=== PATIENT | female | born 1955 | race Caucasian/White ===

== ENCOUNTER 2019-11-18 18:18 | Inpatient (IN) | payer MEDICARE, MEDICAID ==
[2019-11-18 18:26] VITALS: BMI 25.4
[2019-11-18] MEDS ORDERED: Albuterol 200 PUFF (6.7GM INHALER) INH PRN (20:06)
[2019-11-18] MEDS ORDERED: Melatonin 3 MG TAB PO PRN (20:09)
[2019-11-18] MEDS ORDERED: BELSOMRA PO PRN (20:17)
[2019-11-18] MEDS: Montelukast Sodium 10 mg Tablet PO SCH (20:48)
[2019-11-18] MEDS: Atorvastatin Calcium 40 MG TAB PO SCH (20:48)
[2019-11-18] MEDS: Acetaminophen 325 MG TAB PO SCH (23:54)
[2019-11-19] MEDS: Acetaminophen 325 MG TAB PO SCH ×4 (05:33→23:00)
[2019-11-19 05:59] LABS: ALT (SGPT) 27 U/L (8-55); AST (SGOT) 15 U/L (5-34); Albumin 2.8 g/dL (3.4-4.8); Alkaline Phosphatase 105 U/L (40-110); Anion Gap 14 mmol/L (10-20); BUN (Urea Nitrogen) 20 mg/dL (9.8-20.1); Bilirubin, Total 0.2 mg/dL (0.2-1.2); Calc. Creatinine Clearance 87 mL/min (70-130); Carbon Dioxide 23 mmol/L (23-31); Chloride 110 mmol/L (98-107); Estimated GFR-MDRD 83; Globulin 2.3 g/dL (2.4-3.5); Glucose 89 mg/dL (80-115); Potassium 3.4 mmol/L (3.5-5.1); Protein, Total 5.1 g/dL (6.0-8.3); Sodium 144 mmol/L (136-145)
[2019-11-19 06:02] LABS: #Basophils 0.1 thou/uL (0.0-0.2); #Eosinphils 0.1 thou/uL (0.0-0.7); #Lymphocytes 2.1 thou/uL (1.20-3.40); #Monocytes 0.6 thou/uL (0.11-0.59); #Neutrophils 6.1 thou/uL (1.40-6.50); %Basophils 1.1 % (0.0-1.0); %Eosinophils 1.3 % (0.0-10.0); %Monocytes 6.3 % (0.0-10.0); %Neutrophils 68.3 % (42.0-75.0); Anisocytosis SLIGHT = 6-15 cells (100X) (0-5/hpf); Hemoglobin 8.8 g/dL (12.0-16.0); MDiff Complete? YES; Mean Corpuscular HGB CONC 30.1 g/dL (32.0-36.0); Mean Corpuscular Hemoglobin 28.2 pg (27.0-31.0); Mean Corpuscular Volume 93.6 fL (78.0-98.0); Mean Platelet Volume 7.5 fL (7.4-10.4); Microcytosis SLIGHT = 6-15 cells (100X) (0-5/hpf); Platelet Count 307 thou/uL (130-400); Platelet Morphology Comment Appears Adequate; RBC Distribution Width 19.9 % (11.5-14.5); Red Blood Cell (RBC) Count 3.11 mill/uL (4.20-5.40); White Blood Cell (WBC) Count 8.9 thou/uL (4.8-10.8)
[2019-11-19] MEDS: Ferrous Sulfate 325 MG TAB PO SCH ×2 (08:36→17:24)
[2019-11-19] MEDS: predniSONE 20 MG TAB PO SCH (08:36)
[2019-11-19] MEDS: Amiodarone 200 MG TAB PO SCH (08:37)
[2019-11-19] MEDS: Aspirin Chewable 81 MG TAB PO SCH (08:38)
[2019-11-19] MEDS: Furosemide 20 MG TAB PO SCH ×2 (08:38→14:47)
[2019-11-19] MEDS: Folic Acid 1 MG TAB PO SCH (08:38)
[2019-11-19] MEDS ORDERED: Potassium Chloride 20 MEQ TAB PO SCH (13:30)
--- NOTE | 2019-11-19 15:13 | HP ---
PRINCIPAL DIAGNOSIS: Deconditioning for therapy. BRIEF HISTORY: This is a pleasant 64-year-old female, who was admitted to the hospital with symptomatic bradycardia. She was felt to be overmedicated with amiodarone and beta-anh. Her amiodarone dose was reduced to 100 mg daily and her metoprolol was discontinued. Her heart rate remained stable and she was deemed stable for transfer to us for continued therapy before she goes home. She has been on a prednisone taper for her rheumatoid arthritis. She is currently taking 20 mg for two weeks, which started on November 10, then it will be 10 mg for two weeks, then 5 mg daily. She is also on Xarelto for history of atrial fibrillation and flutter. She recently underwent right ventricular wall rupture with a pericardial window placement. Currently, she is up in her chair and denies any chest pain or shortness of breath. She denies any fever or chills. She is hoping to get strong with therapy and go home. No family at bedside. PAST MEDICAL HISTORY: 1. Hypertension. 2. Dyslipidemia. 3. Atrial fibrillation. 4. Insomnia. 5. Rheumatoid arthritis. 6. History of DVT to left leg. 7. Asthma. 8. Retinal detachment. 9. Gastroesophageal reflux disease. PAST SURGICAL HISTORY: 1. Right ventricular wall rupture, status post repair and pericardial window placement. 2. Left knee replacement. 3. Multiple eye surgeries. FAMILY HISTORY: Positive for heart disease in her father, and there is an aunt on her father's side who had breast cancer. PSYCHOSOCIAL HISTORY: Quit smoking 10 years ago, she smoked only for a short period of time. Social alcohol intake. Denies any IV drug abuse or any other recreational drug abuse. REVIEW OF SYSTEMS: CARDIOVASCULAR: Denies any chest pain, shortness of breath, palpitations, PND, orthopnea, or pedal edema. RESPIRATORY: Occasional cough. Denies any expectoration. Denies any hemoptysis. Denies any pleuritic-type chest pain. GASTROINTESTINAL: Denies any nausea, vomiting, diarrhea, constipation, hematemesis, melena, or hematochezia. GENITOURINARY: Denies any frequency, urgency, dysuria, or hematuria. CENTRAL NERVOUS SYSTEM: Denies any focal numbness, weakness, or fainting spells. HEENT: Denies any difficulty with speech, vision, hearing, or swallowing. SKIN: Denies any rash. GENERAL: Denies any fever, chills, or weight changes. Occasional insomnia problem. MEDICATIONS: She has been transferred here on the following medications; 1. Tylenol 650 q.6 scheduled. 2. Proventil HFA two puffs q.4 p.r.n. 3. Amiodarone 100 mg daily. 4. Aspirin 81 mg daily. 5. Lipitor 40 mg daily. 6. Vitamin D3, 1000 international units daily. 7. Iron sulfate 325 b.i.d. 8. Folic acid 1 mg daily. 9. Lasix 20 mg b.i.d. 10. Melatonin 3 mg at bedtime as needed. 11. Singulair 10 mg at bedtime. 12. Protonix 40 mg daily. 13. Belsomra, but she is not taking it, so we will discontinue it. 14. Prednisone 20 mg tapering dose. 15. Xarelto 20 mg daily. ALLERGIES: IODINATED CONTRAST MEDIA AND IBUPROFEN. PHYSICAL EXAMINATION: GENERAL: Pleasant 64-year-old female, who is up in her chair, and denies any complaints. She responds appropriately to questions. She is alert, awake, and oriented x3. VITAL SIGNS: She is afebrile. Heart rate is 65, respirations 18, oxygen saturation 97% on room air, blood pressure 140/69. HEENT: Normocephalic and atraumatic. Pupils equally reactive to light and accommodation. NECK: No JVD, thyromegaly, cervical lymphadenopathy, or throat exudates. No carotid bruits. CARDIOVASCULAR SYSTEM: S1 and S2 plus. Rate and rhythm regular. RESPIRATORY: Normal vesicular breath sounds heard in all lung rivera. ABDOMEN: Soft, nontender. Bowel sounds heard in all quadrants. EXTREMITIES: Without cyanosis or clubbing. Trace edema. CENTRAL NERVOUS SYSTEM: AAO x3. Cranial nerves 2 through 12 intact. Grossly nonfocal. LABORATORY DATA: Laboratory values done this morning shows a white count of 8.9, hemoglobin and hematocrit are 8.8 and 29.2. Sodium 144, potassium slightly low at 3.4, BUN and creatinine is 20 and 0.71. IMPRESSION: 1. Chronic diastolic congestive heart failure. 2. Atrial fibrillation and flutter, rate controlled. 3. Gastroesophageal reflux disease. 4. Hypertension. 5. Dyslipidemia. 6. Rheumatoid arthritis. 7. History of deep venous thrombosis. 8. Insomnia. 9. Osteoarthritis. 10. Resolved sinus bradycardia. 11. Pericardial effusion, status post window placement and deconditioning and hypokalemia. PLAN: 1. Continue current medications, but discontinue Belsomra. 2. Replace potassium. 3. Heart healthy diet. 4. Monitor blood pressure and adjust medications as needed. 5. Monitor for continued resolution of heart failure. 6. DVT prophylaxis - she is on Xarelto. 7. Decubitus precautions. 8. Stress ulcer prophylaxis - she is on Protonix. 9. PT/OT eval and treat. 10. Routine laboratory values. 11. Discussed with the patient in detail. All questions answered. 12. Estimated length of stay, 10 to 14 days. Job ID: [id number]
[2019-11-19] MEDS: Rivaroxaban 10 MG TAB PO SCH (17:24)
[2019-11-19] MEDS: Montelukast Sodium 10 mg Tablet PO SCH (20:48)
[2019-11-19] MEDS: Atorvastatin Calcium 40 MG TAB PO SCH (20:48)
[2019-11-20] MEDS: Acetaminophen 325 MG TAB PO SCH ×4 (06:13→23:38)
[2019-11-20] MEDS: Potassium Chloride 20 MEQ TAB PO SCH (08:31)
[2019-11-20] MEDS: predniSONE 20 MG TAB PO SCH (08:31)
[2019-11-20] MEDS: Ferrous Sulfate 325 MG TAB PO SCH ×2 (08:31→16:26)
[2019-11-20] MEDS: Aspirin Chewable 81 MG TAB PO SCH (08:32)
[2019-11-20] MEDS: Amiodarone 200 MG TAB PO SCH (08:32)
[2019-11-20] MEDS: Folic Acid 1 MG TAB PO SCH (08:32)
[2019-11-20] MEDS: Furosemide 20 MG TAB PO SCH ×2 (08:32→13:30)
--- NOTE | 2019-11-20 14:13 | PRG ---
DATE OF SERVICE: 11/20/2019 SUBJECTIVE: Ms. Gonzales is doing well. Denies any complaints. Resting comfortably, tolerating her therapy. She is happy with her progress. Denies any concerns or questions. No family at bedside. OBJECTIVE: VITAL SIGNS: She is afebrile, heart rate 80, respirations 18, oxygen saturation 97% on room air, blood pressure 130/67. CARDIOVASCULAR SYSTEM: S1 and S2 plus. RESPIRATORY SYSTEM: Normal vesicular breath sounds. ABDOMEN: Soft and nontender. Bowel sounds heard in all quadrants. EXTREMITIES: Without cyanosis or clubbing. CENTRAL NERVOUS SYSTEM: Grossly nonfocal other than generalized weakness. IMPRESSION: 1. Hypokalemia. Potassium has been replaced. 2. Symptomatic bradycardia, which has resolved. 3. Hypertension. 4. Dyslipidemia. 5. Atrial fibrillation. 6. Rheumatoid arthritis. 7. Asthma. 8. Gastroesophageal reflux disease. 9. Deconditioning. PLAN: 1. Continue current medications. 2. Heart healthy diet. 3. Monitor heart rate and rhythm. 4. Monitor blood pressure and adjust medications as needed. 5. DVT prophylaxis - she is on Xarelto. 6. Decubitus precautions. 7. Stress ulcer prophylaxis. 8. Physical therapy. 9. Recheck BMP in the morning. Job ID: [id number]
[2019-11-20] MEDS: Rivaroxaban 10 MG TAB PO SCH (16:26)
[2019-11-20] MEDS: Montelukast Sodium 10 mg Tablet PO SCH (21:34)
[2019-11-20] MEDS: Atorvastatin Calcium 40 MG TAB PO SCH (21:34)
[2019-11-21] MEDS: Acetaminophen 325 MG TAB PO SCH ×4 (05:20→23:08)
[2019-11-21 05:42] LABS: Anion Gap 14 mmol/L (10-20); BUN (Urea Nitrogen) 17 mg/dL (9.8-20.1); Calc. Creatinine Clearance 97 mL/min (70-130); Calcium 8.1 mg/dL (7.8-10.44); Carbon Dioxide 22 mmol/L (23-31); Chloride 109 mmol/L (98-107); Estimated GFR-MDRD Greater than 90; Glucose 79 mg/dL (80-115); Potassium 3.3 mmol/L (3.5-5.1); Sodium 142 mmol/L (136-145)
[2019-11-21 05:48] LABS: #Basophils 0.1 thou/uL (0.0-0.2); #Eosinphils 0.2 thou/uL (0.0-0.7); #Lymphocytes 2.4 thou/uL (1.20-3.40); #Monocytes 0.5 thou/uL (0.11-0.59); #Neutrophils 5.7 thou/uL (1.40-6.50); %Basophils 0.8 % (0.0-1.0); %Eosinophils 1.9 % (0.0-10.0); %Lymphocytes 27.2 % (21.0-51.0); %Neutrophils 64.1 % (42.0-75.0); Anisocytosis MODERATE=16-30 cells (100X) (0-5/hpf); Hemoglobin 9.3 g/dL (12.0-16.0); Hypochromia SLIGHT = 6-15 cells (100X) (0-5/hpf); MDiff Complete? YES; Mean Corpuscular HGB CONC 29.5 g/dL (32.0-36.0); Mean Corpuscular Volume 94.9 fL (78.0-98.0); Mean Platelet Volume 7.7 fL (7.4-10.4); Platelet Count 265 thou/uL (130-400); Platelet Morphology Comment Appears Adequate; Polychromasia SLIGHT = 2-3 cells (100X) (0-2/hpf); RBC Distribution Width 20.7 % (11.5-14.5); Red Blood Cell (RBC) Count 3.33 mill/uL (4.20-5.40); Tear Drops SLIGHT = 2-5 cells (100X) (0-1/hpf); White Blood Cell (WBC) Count 8.9 thou/uL (4.8-10.8)
[2019-11-21] MEDS: Amiodarone 200 MG TAB PO SCH (08:14)
[2019-11-21] MEDS: Aspirin Chewable 81 MG TAB PO SCH (08:14)
[2019-11-21] MEDS: Potassium Chloride 20 MEQ TAB PO SCH ×2 (08:14→17:05)
[2019-11-21] MEDS: Folic Acid 1 MG TAB PO SCH (08:14)
[2019-11-21] MEDS: Furosemide 20 MG TAB PO SCH ×2 (08:14→15:28)
[2019-11-21] MEDS: Ferrous Sulfate 325 MG TAB PO SCH ×2 (08:15→17:05)
[2019-11-21] MEDS: predniSONE 20 MG TAB PO SCH (08:15)
[2019-11-21] MEDS ORDERED: Potassium Chloride 20 MEQ TAB PO SCH (09:00)
--- NOTE | 2019-11-21 09:34 | PRG ---
DATE OF SERVICE: 11/21/2019 SUBJECTIVE: Ms. Gonzales is up in her chair. She denies any complaints. She is happy with her progress. Discussed with therapy. OBJECTIVE: VITAL SIGNS: She is afebrile, heart rate is 60, respirations 18, oxygen saturation 99% on room air, and blood pressure 109/57. CARDIOVASCULAR SYSTEM: S1 and S2 plus. RESPIRATORY SYSTEM: Normal vesicular breath sounds. ABDOMEN: Soft and nontender. Bowel sounds heard in all quadrants. EXTREMITIES: Without cyanosis or clubbing. CENTRAL NERVOUS SYSTEM: Improving deconditioning. LABORATORY DATA: White count is 8.9, H and H are 9.3 and 31.6. Sodium 142, potassium 4.3, BUN and creatinine are 17 and 0.64. IMPRESSION: 1. Resolved symptomatic bradycardia. 2. Right ventricular rupture status post repair. 3. Pericardial effusion and possible tamponade, requiring pericardial window. 4. Hypertension. 5. Dyslipidemia. 6. Atrial fibrillation. 7. Rheumatoid arthritis. 8. Asthma. 9. Hypokalemia. PLAN: 1. Give her an extra dose of 40 mEq p.o. now and change potassium to 20 b.i.d. from tomorrow. 2. Continue other medications. 3. Heart healthy diet. 4. Monitor heart rate and rhythm. 5. DVT prophylaxis - she is on Xarelto. 6. Decubitus precaution. 7. Stress ulcer prophylaxis. 8. Taper prednisone as ordered. 9. Therapy. 10. Routine laboratory values. Job ID: [id number]
[2019-11-21] MEDS: Rivaroxaban 10 MG TAB PO SCH (17:04)
[2019-11-21] MEDS: Montelukast Sodium 10 mg Tablet PO SCH (21:12)
[2019-11-21] MEDS: Atorvastatin Calcium 40 MG TAB PO SCH (21:12)
[2019-11-22] MEDS: Acetaminophen 325 MG TAB PO SCH ×2 (05:01→09:49)
[2019-11-22 05:37] LABS: Magnesium 1.7 mg/dL (1.6-2.6)
[2019-11-22] MEDS: Folic Acid 1 MG TAB PO SCH (09:43)
[2019-11-22] MEDS: Potassium Chloride 20 MEQ TAB PO SCH ×2 (09:43→16:05)
[2019-11-22] MEDS: Aspirin Chewable 81 MG TAB PO SCH (09:43)
[2019-11-22] MEDS: Ferrous Sulfate 325 MG TAB PO SCH ×2 (09:44→16:05)
[2019-11-22] MEDS: Furosemide 20 MG TAB PO SCH ×2 (09:44→13:58)
[2019-11-22] MEDS: predniSONE 20 MG TAB PO SCH (09:44)
[2019-11-22] MEDS: Amiodarone 200 MG TAB PO SCH (09:44)
[2019-11-22] MEDS: Rivaroxaban 10 MG TAB PO SCH (16:05)
--- NOTE | 2019-11-22 16:56 | PRG ---
DATE OF SERVICE: 11/22/2019 SUBJECTIVE: Ms. Gonzales is up in her chair. She is disappointed that there is no therapy on the weekends. I advised her to convince one of the nurses to walk with her. She is hardly taking the Tylenol, so we have changed it to p.r.n. No other concerns or questions. OBJECTIVE: VITAL SIGNS: She is afebrile. Heart rate 66, respirations 20, oxygen saturation 96% on room air, blood pressure 126/57. CARDIOVASCULAR: S1 and S2 plus. RESPIRATORY: Normal vesicular breath sounds. ABDOMEN: Soft and nontender. Bowel sounds heard in all quadrants. EXTREMITIES: Without cyanosis or clubbing. CENTRAL NERVOUS SYSTEM: Improving deconditioning. IMPRESSION: 1. Resolved symptomatic bradycardia, likely due to medications. 2. Right ventricular rupture, status post repair. 3. Hypertension. 4. Dyslipidemia. 5. Atrial fibrillation. 6. Rheumatoid arthritis. 7. Asthma. 8. Hypokalemia, which has since resolved. Her potassium this morning is 4.0, and magnesium is 1.7. PLAN: 1. Continue current medications. 2. Heart-healthy diet. 3. Monitor heart rate and rhythm. 4. Monitor blood pressure and adjust medications as needed. 5. Physical therapy. 6. Routine laboratory values. 7. DVT and stress ulcer prophylaxis. 8. Taper steroids. 9. Decubitus precautions. Continue therapy. Job ID: [id number]
[2019-11-22] MEDS: Montelukast Sodium 10 mg Tablet PO SCH (20:10)
[2019-11-22] MEDS: Atorvastatin Calcium 40 MG TAB PO SCH (20:10)
[2019-11-23] MEDS: Aspirin Chewable 81 MG TAB PO SCH (08:58)
[2019-11-23] MEDS: Potassium Chloride 20 MEQ TAB PO SCH ×2 (08:58→17:20)
[2019-11-23] MEDS: Acetaminophen 325 MG TAB PO PRN (08:58)
[2019-11-23] MEDS: Ferrous Sulfate 325 MG TAB PO SCH ×2 (08:58→17:20)
[2019-11-23] MEDS: Furosemide 20 MG TAB PO SCH ×2 (08:58→13:52)
[2019-11-23] MEDS: Amiodarone 200 MG TAB PO SCH (08:58)
[2019-11-23] MEDS: predniSONE 20 MG TAB PO SCH (08:58)
[2019-11-23] MEDS: Folic Acid 1 MG TAB PO SCH (08:58)
--- NOTE | 2019-11-23 12:05 | PRG ---
DATE OF SERVICE: 11/23/2019 SUBJECTIVE: Ms. Gonzales is up in her chair. She apparently walked with nursing around the hallway yesterday. She is hoping to do that again today. Denies any questions or concerns. No family at bedside. OBJECTIVE: VITAL SIGNS: She is afebrile, heart rate 78, respirations 18, oxygen saturation 96% on room air, and blood pressure 145/66. CARDIOVASCULAR SYSTEM: S1 and S2 plus. RESPIRATORY SYSTEM: Normal vesicular breath sounds. ABDOMEN: Soft and nontender. Bowel sounds heard in all quadrants. EXTREMITIES: Without cyanosis or clubbing. IMPRESSION: 1. Resolved symptomatic bradycardia. 2. Rheumatoid arthritis, on a tapering dose of prednisone. 3. Hypertension. 4. Dyslipidemia. 5. Atrial fibrillation. 6. Asthma. 7. Resolved hypokalemia. PLAN: 1. Continue current medications. 2. Heart healthy diet. 3. Monitor heart rate and rhythm. 4. Monitor blood pressure and adjust medications. 5. DVT prophylaxis. She is on Xarelto. 6. Decubitus precaution. 7. Stress ulcer prophylaxis. 8. Physical therapy. 9. Routine laboratory values. Job ID: [id number]
[2019-11-23] MEDS: Rivaroxaban 10 MG TAB PO SCH (17:20)
[2019-11-23] MEDS: Atorvastatin Calcium 40 MG TAB PO SCH (20:44)
[2019-11-23] MEDS: Montelukast Sodium 10 mg Tablet PO SCH (20:44)
[2019-11-24] MEDS: Ferrous Sulfate 325 MG TAB PO SCH ×2 (09:18→16:29)
[2019-11-24] MEDS: Amiodarone 200 MG TAB PO SCH (09:19)
[2019-11-24] MEDS: Potassium Chloride 20 MEQ TAB PO SCH ×2 (09:19→16:29)
[2019-11-24] MEDS: Folic Acid 1 MG TAB PO SCH (09:19)
[2019-11-24] MEDS: Furosemide 20 MG TAB PO SCH ×2 (09:20→13:00)
[2019-11-24] MEDS: Aspirin Chewable 81 MG TAB PO SCH (09:20)
[2019-11-24] MEDS: predniSONE 20 MG TAB PO SCH (09:20)
[2019-11-24] MEDS: Acetaminophen 325 MG TAB PO PRN ×2 (09:23→20:33)
--- NOTE | 2019-11-24 13:29 | PRG ---
DATE OF SERVICE: 11/24/2019 SUBJECTIVE: Ms. Gonzales is doing well. She apparently walked on her own without any assistance around the nurse's station. She does use a walker. Hopefully, the way she is progressing, she may be able to go later this week, but I advised her that we will wait for the case conference tomorrow. Medically, she denies any questions or concerns. OBJECTIVE: VITAL SIGNS: She is afebrile, heart rate 79, respirations 20, oxygen saturation 97% on room air, blood pressure 120/81. CARDIOVASCULAR SYSTEM: S1 and S2 plus. RESPIRATORY SYSTEM: Normal vesicular breath sounds. ABDOMEN: Soft and nontender. Bowel sounds heard in all quadrants. EXTREMITIES: Without cyanosis or clubbing. CENTRAL NERVOUS SYSTEM: Grossly nonfocal except generalized weakness, which is improving significantly. IMPRESSION: 1. Rheumatoid arthritis. 2. Hypertension. 3. Dyslipidemia. 4. Atrial fibrillation. 5. Asthma. PLAN: 1. Continue current medications. 2. Heart healthy diet. 3. Monitor heart rate and rhythm. 4. DVT prophylaxis - she is on Xarelto. 5. Decubitus precautions. 6. Stress ulcer prophylaxis. 7. Await Therapy's opinion, but it looks like she is ready to go home in the next couple of days. 8. Discharge planning. Job ID: [id number]
[2019-11-24] MEDS: Rivaroxaban 10 MG TAB PO SCH (16:29)
[2019-11-24 18:44] VITALS: TEMP 98
[2019-11-24] MEDS: Atorvastatin Calcium 40 MG TAB PO SCH (20:33)
[2019-11-24] MEDS: Montelukast Sodium 10 mg Tablet PO SCH (20:34)
[2019-11-25 05:35] LABS: Platelet Count 239 thou/uL (130-400)
[2019-11-25] MEDS: predniSONE 5 MG TAB PO SCH (09:17)
[2019-11-25] MEDS: Aspirin Chewable 81 MG TAB PO SCH (09:18)
[2019-11-25] MEDS: Acetaminophen 325 MG TAB PO PRN ×2 (09:18→20:56)
[2019-11-25] MEDS: Ferrous Sulfate 325 MG TAB PO SCH ×2 (09:18→17:43)
[2019-11-25] MEDS: Folic Acid 1 MG TAB PO SCH (09:18)
[2019-11-25] MEDS: Potassium Chloride 20 MEQ TAB PO SCH ×2 (09:18→17:44)
[2019-11-25] MEDS: Furosemide 20 MG TAB PO SCH ×2 (09:19→15:03)
[2019-11-25] MEDS: Amiodarone 200 MG TAB PO SCH (09:23)
--- NOTE | 2019-11-25 13:59 | PRG ---
DATE OF SERVICE: 11/25/2019 SUBJECTIVE: Ms. Gonzales is up in her chair. She is doing well. She apparently was told that her insurance has denied any further stay and her last date here is tomorrow. The patient states that she does not need any prescriptions, but if she needs , she may need the tapering dose of prednisone. OBJECTIVE: VITAL SIGNS: She is afebrile. Heart rate is 101, respirations 18, oxygen saturation 97% room air, blood pressure 125/66. CARDIOVASCULAR: S1 and S2 plus. RESPIRATORY: Normal vesicular breath sounds. ABDOMEN: Soft, nontender. Bowel sounds heard in all quadrants. EXTREMITIES: Without cyanosis or clubbing. CENTRAL NERVOUS SYSTEM: Grossly nonfocal. Improving deconditioning. IMPRESSION: 1. Resolved symptomatic bradycardia. 2. Atrial fibrillation. 3. Rheumatoid arthritis. 4. Hypertension. 5. Dyslipidemia. 6. Atrial fibrillation. 7. Asthma. PLAN: 1. Continue current medications. 2. Nutritional support. 3. DVT prophylaxis. 4. Decubitus precautions. 5. Stress ulcer prophylaxis. 6. Discharge planning. 7. Anticipate discharge home tomorrow. Job ID: [id number]
[2019-11-25] MEDS: Rivaroxaban 10 MG TAB PO SCH (17:43)
[2019-11-25] MEDS: Montelukast Sodium 10 mg Tablet PO SCH (20:56)
[2019-11-25] MEDS: Atorvastatin Calcium 40 MG TAB PO SCH (20:56)
[2019-11-26 08:37] VITALS: BP 125/73
[2019-11-26] MEDS: Potassium Chloride 20 MEQ TAB PO SCH (09:36)
[2019-11-26] MEDS: Folic Acid 1 MG TAB PO SCH (09:36)
[2019-11-26] MEDS: predniSONE 5 MG TAB PO SCH (09:36)
[2019-11-26] MEDS: Amiodarone 200 MG TAB PO SCH (09:36)
[2019-11-26] MEDS: Ferrous Sulfate 325 MG TAB PO SCH (09:37)
[2019-11-26] MEDS: Aspirin Chewable 81 MG TAB PO SCH (09:37)
[2019-11-26] MEDS: Furosemide 20 MG TAB PO SCH ×2 (09:37→14:52)
[2019-11-26] MEDS: Acetaminophen 325 MG TAB PO PRN (09:37)
--- NOTE | 2019-11-26 13:46 | DIS ---
DATE OF ADMISSION: 11/18/2019 DATE OF DISCHARGE: 11/26/2019 PRINCIPAL DIAGNOSES: 1. Deconditioning, much improved. 2. Symptomatic bradycardia, which has resolved. 3. Rheumatoid arthritis. 4. Asthma. 5. Atrial fibrillation. 6. Hypertension. 7. Insomnia. 8. History of deep venous thrombosis to left leg. 9. Gastroesophageal reflux disease. 10. Recent right ventricular wall rupture requiring repair. 11. History of left knee replacement. 12. Multiple eye surgeries. COMPLICATIONS: None. ADVERSE REACTIONS: None. PROCEDURES: None. CONSULTATIONS: Physical Therapy and Occupational Therapy. HOSPITAL COURSE: The patient was admitted after having symptomatic bradycardia. It was felt to be due to over medication with amiodarone and beta-anh. Her beta-anh was discontinued. Her amiodarone dose was reduced to 100. She has done well since then. She is on a prednisone taper. She states that she does have prednisone at home. She is also on Xarelto. She has done well with therapy, and apparently, her insurance said that she does not meet criteria for further skilled stay, so plan is to discharge her home with home health. The patient states that she does not need any prescriptions. She has all of them at home. She is done with the 20 mg, so she will be taking only 10 mg once a day starting tomorrow for 2 weeks, then 5 mg. She is to follow up with her PCP. She denies any questions. No family at bedside. PHYSICAL EXAMINATION: VITAL SIGNS: On the day of discharge, she is afebrile. Heart rate is 82, respirations 18, oxygen saturation 98% room air, blood pressure 125/73. CARDIOVASCULAR: S1 and S2 plus. RESPIRATORY: Normal vesicular breath sounds. ABDOMEN: Soft, nontender. Bowel sounds heard in all quadrants. EXTREMITIES: Without cyanosis or clubbing. CENTRAL NERVOUS SYSTEM: Generalized weakness, otherwise nonfocal. Improving deconditioning. MEDICATIONS: Discharge medications will be same as admission, which are; 1. Tylenol 650 q.6 p.r.n. 2. Albuterol inhaler two puffs q.4 p.r.n. 3. Amiodarone 100 mg daily. 4. Aspirin 81 mg daily. 5. Lipitor 40 mg daily. 6. Vitamin D 1000 units daily international units. 7. Iron sulfate 325 b.i.d. 8. Folic acid 1 mg daily. 9. Lasix 20 mg b.i.d. 10. Melatonin 3 mg at bedtime as needed. 11. Singulair 10 mg daily. 12. Protonix 40 mg daily. 13. Potassium 20 mEq daily. 14. Prednisone 10 mg daily from today for two weeks, then 5 mg daily. 15. Xarelto 20 mg daily. Actually, she does need a prescription for her potassium, which I am going to send in to [facility] in [place], which is her preferred pharmacy. The patient does meet criteria for home health due to her being homebound. She does not drive. She is weak and is still continues to need therapy. She will need her vital signs monitored, especially her heart rate. I have advised her to follow up with her PCP in the next 7 to 10 days. Home health to be followed by her PCP, but my discharge summary, this can be used for [id number]. For full details, please see chart. Total time spent on this discharge, 35 minutes. Job ID: [id number]
[2019-12-09] MEDS ORDERED: predniSONE 5 MG TAB PO SCH (09:00)
== END 2019-11-26 15:15 | disposition home health service (06) | DRG 309 ==
LOC: NAV ACUTE 18:18
PROVIDERS: ADMIT Internal Medicine; ATTEND Internal Medicine
DX: R00.1 Bradycardia, unspecified (principal); I50.32 Chronic diastolic (congestive) heart failure; R53.81 Other malaise; M06.9 Rheumatoid arthritis, unspecified; J45.909 Unspecified asthma, uncomplicated; I48.91 Unspecified atrial fibrillation; I11.0 Hypertensive heart disease with heart failure; E87.6 Hypokalemia; T46.2X5A Adverse effect of other antidysrhythmic drugs, initial encounter; G47.00 Insomnia, unspecified; Z96.652 Presence of left artificial knee joint; Z79.01 Long term (current) use of anticoagulants; Z86.718 Personal history of other venous thrombosis and embolism; Z88.6 Allergy status to analgesic agent; Z91.041 Radiographic dye allergy status
CPT/HCPCS: 36415; 80048; 80053; 82565; 83735; 84132; 85014; 85018; 85025; 85049; J7512